=== PATIENT | male | born 1970 | race Caucasian/White ===

== ENCOUNTER 2018-04-24 10:58 | Emergency (ER) | payer SELFPAY ==
[2018-04-24] MEDS ORDERED: Lidocaine 1% (PF) 30 ML VIAL ONE (11:30)
[2018-04-24] MEDS ORDERED: Adacel (T-DAP) 0.5 ML SYRINGE ONE (11:30)
== END 2018-04-24 11:53 | disposition home or self-care (01) ==
LOC: NAV ERS 10:58
DX: S61.412A Laceration without foreign body of left hand, initial encounter (principal); W26.8XXA Contact with other sharp object(s), not elsewhere classified, initial encounter
CPT/HCPCS: 12001; 90471; 90715; J2001

== ENCOUNTER 2021-02-11 19:47 | Emergency (ER) | payer OTHER, BC | END 2021-02-11 21:30 | disposition home or self-care (01) | LOC: NAV ERS 19:47 | DX: S52.502A Unspecified fracture of the lower end of left radius, initial encounter for closed fracture (principal); W01.198A Fall on same level from slipping, tripping and stumbling with subsequent striking against other object, initial encounter | CPT/HCPCS: 29125 ==

== ENCOUNTER 2021-06-17 13:26 | Emergency (ER) | payer OTHER, BC | END 2021-06-17 14:35 | disposition home or self-care (01) | LOC: NAV ERS 13:26 | DX: S23.41XA Sprain of ribs, initial encounter (principal); M25.532 Pain in left wrist; W01.10XA Fall on same level from slipping, tripping and stumbling with subsequent striking against unspecified object, initial encounter | CPT/HCPCS: 29125 ==

== ENCOUNTER 2022-01-10 22:42 | Emergency (ER) | payer BC | END 2022-01-10 23:10 | disposition home or self-care (01) | LOC: NAV ERS 22:42 | DX: S61.312A Laceration without foreign body of right middle finger with damage to nail, initial encounter (principal); W26.8XXA Contact with other sharp object(s), not elsewhere classified, initial encounter | CPT/HCPCS: 12001 ==